=== PATIENT | female | born 1960 | race Caucasian/White ===

== ENCOUNTER 2017-06-06 06:40 | Day surgery (SDC) | payer MEDICAID ==
[~2017-06-06] VITALS: Ht 154.9 cm; Wt 79.4 kg
[~2017-06-06 06:40] MED LIST: HYDR-4663 PO; HYDR25TA4 PO; LISI40TA PO; LORA-622 PO; MECL-87 PO; OXCA300S PO; OXYB5TAB61 PO; PAR20T PO; POTA10TA51 PO; SIMV-8 PO
[2017-06-06] MEDS ORDERED: IODIXANOL 320MG/ML 100ML BTL IV ONE (07:16)
[2017-06-06] MEDS ORDERED: LIDOCAINE 2%HCL (LOCAL ANESTH.) INJ 20ML MDV ONE (07:16)
[2017-06-06] MEDS ORDERED: SODIUM CHL 0.9% 0 ML ONE (08:28)
[2017-06-06] MEDS ORDERED: ANGIOMAX 250 MG VIAL IV ONE (08:28)
[2017-06-06] MEDS ORDERED: MIDAZOLAM HCL 1MG/1ML-2 ML VIAL ONE (08:29)
[2017-06-06] MEDS ORDERED: fentaNYL CITRATE 100 MCG/2 ML VL ONE (08:29)
[2017-06-06] MEDS ORDERED: VERAPAMIL 2.5MG/ML INJ 2ML VIAL IV ONE (08:30)
[2017-06-06] MEDS ORDERED: HEPARIN SODIUM (PORCINE) 5000 UNITS/ML 1ML VIAL ONE (08:57)
== END 2017-06-06 11:31 | disposition home or self-care (01) ==
LOC: CATH 06:40
PROVIDERS: ATTEND Internal Medicine
DX: I20.0 Unstable angina (principal); R94.39 Abnormal result of other cardiovascular function study
CPT/HCPCS: 93458; C1769; C1894; J1644; J3010; J2250; Q9967

== ENCOUNTER → 2024-11-11 | Outpatient (CLI) | payer MEDICAID ==
[~2024-11-11] MED LIST changes: -HYDR-4663 PO; +HYDR-4833 PO; -LISI40TA PO; +LISI40TA16 PO; -MECL-87 PO; +MECL-90 PO; +OXYB5TAB14 PO; -OXYB5TAB61 PO; +POTA-36 PO; -POTA10TA51 PO; -SIMV-8 PO; +SIMV20TA20 PO
== END | disposition home or self-care (01) ==
LOC: Rad HDHVI 12:57
PROVIDERS: ATTEND Internal Medicine Cardiovascular Disease
DX: R07.9 Chest pain, unspecified (principal); R06.02 Shortness of breath
CPT/HCPCS: 93306